=== PATIENT | female | born 1955 | race Caucasian/White ===

== ENCOUNTER 2016-09-28 22:23 | Inpatient (IN) | payer BC ==
[2016-09-28] MEDS ORDERED: 0.9% SODIUM CHLORIDE 250ML BAG IV ONE (23:22)
[2016-09-28] MEDS ORDERED: PROMETHAZINE HCL 25 MG/ML VIAL IM ONE (23:22)
[2016-09-28] MEDS ORDERED: HYDROMORPHONE HCL 1 MG/ML CPJ IVP ONE (23:22)
[2016-09-28 23:56] LABS: BASO % 0.2 % (0-6); EOS % 0.4 % (0-6); HEMATOCRIT 36.8 % (35.0-47.0); HEMOGLOBIN 12.4 gm/dl (11.6-16.0); LYMPH % 6.9 % (16-45); MEAN CELL VOLUME 90.9 fl (81-97); MEAN CORPUSCULAR HEMOGLOBIN 30.6 pg (27-33); MEAN CORPUSCULAR HGB CONC 33.7 g/dl (32-36); MEAN PLATELET VOLUME 9.3 fl (7.4-10.4); MONO % 4.5 % (0-9); PLATELET COUNT 455 K/uL (130-400); RED BLOOD COUNT 4.05 M/uL (3.80-5.40); RED CELL DISTRIBUTION WIDTH 13.4 % (11.5-14.5)
[2016-09-29 00:42] LABS: ALB/GLOB RATIO 1.6 (1.1-1.8); ALBUMIN 4.2 gm/dL (3.5-5.0); CREATININE 1.4 mg/dL (0.52-1.04); TOTAL PROTEIN 6.9 gm/dL (6.3-8.2)
[2016-09-29 00:43] LABS: BILIRUBIN,TOTAL 0.6 mg/dL (0.2-1.3)
[2016-09-29] MEDS ORDERED: HYDROMORPHONE HCL 1 MG/ML CPJ IVP ONE (02:29)
[2016-09-29] MEDS ORDERED: ONDANSETRON HCL IV 4 MG/2 ML VIAL IVP ONE (02:29)
[2016-09-29] MEDS ORDERED: PIPERACILLIN SODIUM/TAZOBACTAM 3.375 GM in 0.9 % SODIUM CHLORIDE 100ML 100 ML IVPB ONE (02:35)
--- NOTE | 2016-09-29 05:18 | Emergency Department Record ---
History of Present Illness - General Chief complaint: Female Urogenital Problem Stated complaint: ILLEOSTOMY BLOCKAGE Time Seen by Provider: 09/28/16 23:02 Source: Patient Mode of Arrival: Ambulatory - History of Present Illness Initial comments: pt states her ileostomy is obstructed. Complaint: Other Onset/Timin -: Hour(s) Location: RLQ Radiation: Non-radiating Severity: Severe Severity scale (1-10): >10 Quality: Sharp Consistency: Constant, Getting worse Improves with: None Worsens with: None Patient : No Associated Symptoms: Denies other symptoms - Related Data Home Medications Medication Instructions Recorded Confirmed Last Taken B Complex with Vitamin C [Super B 1 each PO 03/04/16 Unknown with Vit C] Calcium Carbonate [Calcium] 600 mg PO 03/04/16 Unknown Clonazepam [Klonopin] 0.5 mg PO 03/04/16 Unknown Cyclobenzaprine HCl [Flexeril] 10 mg PO TID 03/04/16 03/04/16 Unknown Estradiol [Estradiol] 03/04/16 Unknown Fish Oil/Dha/Epa [Fish Oil 1,200 03/04/16 Unknown mg Fish Oil] Gluc/Moisés-MSM#1/C/Yo/Tim/Bor 1 tab PO DAILY 03/04/16 03/04/16 Unknown [Osteo Bi-Flex] Ibuprofen [Ibuprofen] 1 tab PO DAILY 03/04/16 03/04/16 Unknown Lisinopril/Hydrochlorothiazide 1 tab PO DAILY 03/04/16 03/04/16 Unknown [Lisinopril-Hctz 10-12.5 mg Tab] Lysine [l-Lysine] 500 mg PO DAILY 03/04/16 03/04/16 Unknown Multivit with Calcium,Iron,Min 1 each PO DAILY 03/04/16 03/04/16 Unknown [Multiple Vitamins For Women] Tramadol HCl [Tramadol HCl] 50 mg PO DAILY 03/04/16 03/04/16 Unknown Allergies Allergy/AdvReac Type Severity Reaction Status Date / Time No Known Drug Allergies Allergy Verified 09/28/16 22:55 Travel Screening - Travel/Exposure Within Last 30 Days Have you traveled within the last 30 days?: No - Travel/Exposure Within Last Year Have you traveled outside the [place] in the last year?: No - Additonal Travel Details Have you been exposed to anyone with a communicable illness?: No - Travel Symptoms Symptom Screening: None Review of Systems Reviewed: No additional complaints except as noted below Constitutional: Reports: As per HPI. Denies: Chills, Fever, Malaise, Night sweats, Weakness, Weight change Eyes: Reports: As per HPI. Denies: Eye discharge, Eye pain, Photophobia, Vision change ENT: Reports: As per HPI. Denies: Congestion, Dental pain, Ear pain, Epistaxis , Hearing loss, Throat pain Respiratory: Reports: As per HPI. Denies: Cough, Dyspnea, Hemoptysis, Stridor, Wheezes Cardiovascular: Reports: As per HPI. Denies: Arrhythmia, Chest pain, Dyspnea on exertion, Edema, Murmurs, Orthopnea, Palpitations, Paroxysmal nocturnal dyspnea, Rheumatic Fever, Syncope Endocrine: Reports: As per HPI. Denies: Fatigue, Heat or cold intolerance, Polydipsia, Polyuria Gastrointestinal: Reports: As per HPI. Denies: Abdominal pain, Constipation, Diarrhea, Hematemesis, Hematochezia, Melena, Nausea, Vomiting Genitourinary: Reports: As per HPI. Denies: Abnormal menses, Discharge, Dyspareunia, Dysuria, Frequency, Hematuria, Incontinence, Retention, Urgency Musculoskeletal: Reports: As per HPI. Denies: Arthralgia, Back pain, Gout, Joint swelling, Myalgia, Neck pain Skin: Reports: As per HPI. Denies: Bruising, Change in color, Change in hair/ nails, Lesions, Pruritus, Rash Neurological: Reports: As per HPI. Denies: Abnormal gait, Confusion, Headache, Numbness, Paresthesias, Seizure, Tingling, Tremors, Vertigo, Weakness Psychiatric: Reports: As per HPI. Denies: Anxiety, Auditory hallucinations, Depression, Homicidal thoughts, Suicidal thoughts, Visual hallucinations Hematological/Lymphatic: Reports: As per HPI. Denies: Anemia, Blood Clots, Easy bleeding, Easy bruising, Swollen glands Past Medical History - SOCIAL HISTORY Smoking Status: Never smoker Alcohol Use: None Drug Use: Heavy Drug Use Detail:: Marijuana - RESPIRATORY Hx Respiratory Disorders: No - CARDIOVASCULAR Hx Cardio Disorders: No - NEURO Hx Neuro Disorders: No - GI Hx GI Disorders: No - Hx Genitourinary Disorders: No - ENDOCRINE Hx Endocrine Disorders: No - MUSCULOSKELETAL Hx Musculoskeletal Disorders: No - PSYCH Hx Psych Problems: No - HEMATOLOGY/ONCOLOGY Hx Hematology/Oncology Disorders: No Family Medical History Any Significant Family History?: No Physical Exam - General General Appearance: Alert, Oriented x3, Cooperative, Mild distress - Head Head exam: Normal inspection - Eye Eye exam: Normal appearance, PERRL, EOMI Pupils: Normal accommodation - ENT ENT exam: Normal exam, Mucous membranes moist, Normal external ear exam, Normal orophraynx, TM's normal bilaterally Ear exam: Normal external inspection. negative: External canal tenderness Nasal Exam: Normal inspection. negative: Discharge, Sinus tenderness Mouth exam: Normal external inspection, Tongue normal Teeth exam: Normal inspection. negative: Dental caries Throat exam: Normal inspection. negative: Tonsillar erythema, Tonsillar exudate - Neck Neck exam: Normal inspection, Full ROM. negative: Tenderness - Respiratory Respiratory exam: Normal lung sounds bilaterally. negative: Respiratory distress - Cardiovascular Cardiovascular Exam: Regular rate, Normal rhythm, Normal heart sounds - GI/Abdominal GI/Abdominal exam: Soft, Normal bowel sounds, Tenderness, Other (ileostomy w sm amt stool in bag. site digitalized w no prolapse or palpable obstruction.) - Rectal Rectal exam: Deferred - exam: Deferred - Extremities Extremities exam: Normal inspection, Full ROM, Normal capillary refill. negative: Tenderness - Back Back exam: Reports: Normal inspection, Full ROM. Denies: Muscle spasm, Rash noted, Tenderness - Neurological Neurological exam: Alert, CN II-XII intact, Normal gait, Oriented X3 - Psychiatric Psychiatric exam: Normal affect, Normal mood - Skin Skin exam: Dry, Intact, Normal color, Warm Course Vital Signs 09/29/16 09/29/16 09/29/16 02:02 03:15 04:28 Temperature 98.0 F 98.0 F 98.7 F Pulse Rate [ 78 84 79 Pulse Ox Probe] Respiratory 16 20 16 Rate Blood Pressure 120/74 132/78 147/87 [Left Arm] Pulse Ox 100 100 100 - Reevaluation(s) Reevaluation #2: 09/29/16 05:17 ng tube placed giving some relief. d/w dr chaney Medical Decision Making - Management Options MDM Management: Additional Work-up Planned (e.g. ADM/Transfer/OP Study) - Data Complexity MDM Data: Labs Ordered and/or Reviewed, X-Ray Ordered and/or Reviewed - Lab Data Result diagrams: 09/28/16 23:40 09/28/16 23:40 Lab Results 09/28/16 09/28/16 09/29/16 Range/Units 23:40 23:40 03:49 WBC 16.0 H (4.2-12.2) K/uL RBC 4.05 (3.80-5.40) M/uL Hgb 12.4 (11.6-16.0) gm/dl Hct 36.8 (35.0-47.0) % MCV 90.9 (81-97) fl MCH 30.6 (27-33) pg MCHC 33.7 (32-36) g/dl RDW 13.4 (11.5-14.5) % Plt Count 455 H (130-400) K/uL MPV 9.3 (7.4-10.4) fl Neutrophils % 82.0 H (47-80) % Band Neutrophils % 6.0 H (0-5) % Lymphocytes % 7.0 L (16-45) % Monocytes % 5.0 (0-9) % Eosinophils % 0.0 (0-6) % Basophils % 0.0 (0-6) % Sodium 131 L (136-145) mmol/L Potassium 5.2 H (3.5-5.1) mmol/L Chloride 104 (98-107) mmol/L Carbon Dioxide 18.0 L (22-30) mmol/L Anion Gap 9.0 (7-16) BUN 35 H (7-17) mg/dL Creatinine 1.4 H (0.52-1.04) mg/dL Estimated GFR 41 ml/min Random Glucose 117 H (70-110) mg/dL Calcium 9.5 (8.5-10.1) mg/dL Total Bilirubin 0.60 (0.2-1.3) mg/dL AST 40 H (14-36) U/L ALT 59 H (9-52) U/L Alkaline Phosphatase 122 (38-126) U/L Total Protein 6.9 (6.3-8.2) gm/dL Albumin 4.2 (3.5-5.0) gm/dL Globulin 2.7 (1.4-4.8) gm/dL Albumin/Globulin Ratio 1.6 (1.1-1.8) Influenza Type A Ag Cancelled Influenza Type B Ag Cancelled Disposition Disposition: Admit Clinical Impression: SBO (small bowel obstruction) Disposition: Still a Patient at [facility] Decision to Admit: Admit from ER Decision to Admit Date: 09/29/16 Decision to Admit Time: 05:18 Forms: Patient Portal Access
[2016-09-29] MEDS ORDERED: HYDROMORPHONE HCL 1 MG/ML CPJ IVP PRN (06:09)
[2016-09-29] MEDS ORDERED: TEMAZEPAM 15 MG CAPSULE PO PRN (06:09)
[2016-09-29] MEDS ORDERED: 0.9 % SODIUM CHLORIDE 1000ML 1,000 ML IV PRN (06:09)
[2016-09-29] MEDS ORDERED: ONDANSETRON HCL IV 4 MG/2 ML VIAL IVP PRN (06:09)
[2016-09-29] MEDS ORDERED: LYSINE 500 MG PO SCH (10:00)
[2016-09-29] MEDS: ERTAPENEM SODIUM 1 G in 0.9 % SODIUM CHLORIDE 100ML 100 ML IVPB SCH (10:06)
[2016-09-29] MEDS: LISINOPRIL 10 MG TABLET PO SCH (10:11)
[2016-09-29] MEDS: HYDROCHLOROTHIAZIDE 12.5 MG CAPSULE PO SCH (10:11)
[2016-09-29] MEDS: CLONAZEPAM 1MG TABLET PO SCH ×2 (10:11→22:15)
[2016-09-30 06:06] LABS: HEMATOCRIT 32.6 % (35.0-47.0); HEMOGLOBIN 10.8 gm/dl (11.6-16.0); MEAN CELL VOLUME 92.9 fl (81-97); MEAN CORPUSCULAR HGB CONC 33.1 g/dl (32-36); PLATELET COUNT 386 K/uL (130-400); RED BLOOD COUNT 3.51 M/uL (3.80-5.40); RED CELL DISTRIBUTION WIDTH 13.4 % (11.5-14.5)
[2016-09-30 06:12] LABS: MEAN CORPUSCULAR HEMOGLOBIN 30.7 pg (27-33)
[2016-09-30] MEDS: HYDROCHLOROTHIAZIDE 12.5 MG CAPSULE PO SCH (09:37)
[2016-09-30] MEDS: CLONAZEPAM 1MG TABLET PO SCH (09:37)
[2016-09-30] MEDS: ERTAPENEM SODIUM 1 G in 0.9 % SODIUM CHLORIDE 100ML 100 ML IVPB SCH (09:38)
[2016-09-30] MEDS: LISINOPRIL 10 MG TABLET PO SCH (09:41)
--- NOTE | 2016-10-01 07:56 | RADIOLOGY REPORT ---
EXAM: PORTABLE CHEST HISTORY: DIFFICULTY BREATHING. TECHNIQUE: A portable AP view of the chest was obtained. Comparison: None. FINDINGS: The heart size is normal. There is an enteric tube with the tip in the stomach. No pneumothorax. Nodular opacity projects over the left lung base , measuring 2.1 x 1.8 cm. Further assessment with CT recommended. The lungs are otherwise clear. IMPRESSION: THERE IS AN ENTERIC TUBE IN PLACE. 2.1 X 1.8 CM NODULE IN THE LEFT LUNG BASE. FURTHER ASSESSMENT WITH CT RECOMMENDED. JOB NUMBER: [id number] MTDD
--- NOTE | 2016-10-01 08:05 | CT SCAN REPORT ---
EXAM: CT OF THE ABDOMEN AND PELVIS WITHOUT CONTRAST HISTORY: ILEOSTOMY. TECHNIQUE: CT of the abdomen and pelvis was performed without IV contrast. This limits evaluation of the solid visceral organs. Oral contrast was utilized. Comparison: 03/04/16 CT. FINDINGS: Limited evaluation of the lung bases again demonstrates a 2.1 cm mass in the left lung base. This was also present previously. The osseous structures are grossly intact. The visualized liver, spleen, adrenal glands, pancreas, and left kidney are unremarkable. The gallbladder is present, grossly unremarkable. Nonobstructing right renal calculi are present, the largest in the inferior pole of the right kidney measuring 7.9 mm. Moderate atheromatous changes. There is a right lower quadrant ostomy. At the site of the ostomy and proximal to the ostomy are dilated fluid filled loops of small bowel. Near the site of the ostomy is a significantly dilated loop of small bowel measuring 5.9 cm in diameter. There is feculent like material within this loop of small bowel and there are surrounding inflammatory changes. There is gas and stool within the colon. There are inflammatory changes in the right lower quadrant with several, likely reactive adjacent lymph nodes. No free air or free fluid. IMPRESSION: 1. DILATED FLUID FILLED LOOPS OF SMALL BOWEL WITH PROBABLE SMALL BOWEL FECES SIGN IN THE RIGHT LOWER QUADRANT NEAR THE PATIENT'S OSTOMY. FINDINGS ARE WORRISOME FOR OBSTRUCTION. 2. STABLE 2.1 CM SOFT TISSUE MASS IN THE LEFT LUNG BASE. 3. MULTIPLE NONOBSTRUCTING RIGHT RENAL CALCULI. JOB NUMBER: [id number] MTDD
--- NOTE | 2016-10-01 10:07 | History and Physical Report ---
DATE: 09/29/2016. CHIEF COMPLAINT: Abdominal pain. 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 She did survive that situation and has been left with an ileostomy. She has recovered nicely and has done well. Over the last 24 hours or so, she did develop abdominal pain with nausea and vomiting. She was seen at [facility] emergency room where a full work up was done. This did show findings consistent with a partial small bowel obstruction on CT. She did have an elevated white blood cell count of 16,000 and was quite dry with a creatinine of 1.4. She had an nasogastric tube placed. Since being here for the last 12 hours or so, she has done much better. She has had extensive ileostomy output now and has had no nausea or vomiting. Her nasogastric tube has been removed and she is tolerating clear liquids. 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 PAST SURGICAL HISTORY: Total colectomy. MEDICATIONS ON ADMISSION: She currently takes calcium, Flexeril, Klonopin, fish oil, hydrochlorothiazide, Tramadol. ALLERGIES: She has no known medical allergies. SOCIAL HISTORY: She denies any tobacco or alcohol usage. PHYSICAL EXAMINATION: Vital Signs: On examination her vital signs are stable. She is afebrile. Heart: Regular rate and rhythm. Lungs: Laceration. Abdomen: Her abdomen is soft and nontender. There is a well healed midline laparotomy scar noted. There is a right lower quadrant ileostomy which is pink and functioning well. Extremities: Her extremities show no trace of edema. IMPRESSION: Partial small bowel obstruction, resolving. PLAN: At this point we will advance her diet slowly. We will make sure she ambulates well. Continue intravenous hydration. I suspect that we will be able to increase her diet and she will be discharged over the next 24 hours. She is going to follow up with colorectal surgery who is going to do a proctoscopy to see if she can be reconnected or if she will need a J-pouch to restore her bowel continuity. Thank you for allowing me to participate in the care of your patient. Marvin Gonzalez D.O. Date Time JOB NUMBER: [id number] MTDD
== END 2016-09-30 13:45 | disposition home or self-care (01) | DRG 390 ==
LOC: ER 22:23 → MEDSURG 09-29 05:57
PROVIDERS: ADMIT Surgery; ATTEND Surgery
DX: K56.69 Other intestinal obstruction (principal); R11.2 Nausea with vomiting, unspecified; Z93.2 Ileostomy status
CPT/HCPCS: 71010; 74176; 80053; 85025; 85027; 96365; 96375; 96376; 99285; J1170; J2405; J2543; J2550